=== PATIENT | female | born 1980 ===

== ENCOUNTER 2018-06-13 21:58 | Emergency (ER) | payer OTHER ==
[2018-06-13] MEDS ORDERED: Tdap Vaccine 0.5 ml Vial (10-64 yrs) IM ONE ×2 (22:19→22:31)
[2018-06-13 22:20] VITALS: BP 121/77; PULSE 65; RESP 16; TEMP 98.3; O2SAT 99
[2018-06-13] MEDS ORDERED: Lidocaine 1% Inj (20ml) INFIL ONE (22:25)
[2018-06-13] MEDS ORDERED: Bacitracin 500 Units/gm Oint Foilpak UD TOP ONE (22:28)
[2018-06-13] MEDS ORDERED: Lidocaine Hydrochloride 5 ML INJ ONE (22:31)
[2018-06-13] MEDS ORDERED: Bacitracin 500 Units/gm Oint Foilpak UD ONE (22:32)
--- NOTE | 2018-06-13 23:17 | C.PDOC ---
History Of Present Illness 38 year old female presents to the emergency department with complaints of a laceration to her left anterior forearm, caused by a knife at work. Patient denies numbness or tingling, and states that her last tetanus vaccination is unknown. Time Seen by Provider: 06/13/18 22:19 Chief Complaint (Nursing): Abnormal Skin Integrity History Per: Patient History/Exam Limitations: no limitations Onset/Duration Of Symptoms: Hrs Current Symptoms Are (Timing): Still Present Location Of Injury: Left: Forearm, Anterior: Forearm Quality Of Symptoms: Other (laceration) Past Medical History Reviewed: Historical Data, Nursing Documentation, Vital Signs Vital Signs: Last Vital Signs Temp 98.3 F 06/13/18 22:13 Pulse 65 06/13/18 22:13 Resp 16 06/13/18 22:13 BP 121/77 06/13/18 22:13 Pulse Ox 99 06/13/18 22:13 - Medical History PMH: No Chronic Diseases Surgical History: No Surg Hx Family History: States: No Known Family Hx - Social History Hx Alcohol Use: No Hx Substance Use: No - Immunization History Hx Tetanus Toxoid Vaccination: No Hx Influenza Vaccination: No Hx Pneumococcal Vaccination: No Review Of Systems Constitutional: Negative for: Fever, Chills Skin: Positive for: Other (laceration ) Neurological: Negative for: Weakness, Numbness Physical Exam - Physical Exam Appears: Non-toxic, No Acute Distress Skin: Warm, Dry Head: Atraumatic, Normacephalic Extremity: Normal ROM (all extremities), Tenderness (mild at site of laceration), No Swelling, Other (1.5cm laceration to the mid-left anterior forearm, fairly shallow, no active bleeding. from all fingers and wrist. ) Pulses: Left Radial: Normal Neurological/Psych: Oriented x3, Normal Speech, Normal Cognition ED Course And Treatment O2 Sat by Pulse Oximetry: 99 (RA) Pulse Ox Interpretation: Normal Laceration - Laceration Repair Left Forearm Wound Length (In cm): 1.5 Description Of Wound: Linear Anesthesia: Lidocaine 1% Wound Examination: Irrigated With Saline, No FB With Wound Exploration, No Tendon Injury With Wound Exploration Wound Closure: Suture (5-0ethilon) Suture Technique And Material Used: Interrupted (#3) Wound Complexity: Simple (5-0 ethilon) Medical Decision Making Medical Decision Making: Plan: Tetanus 0.5ml IM Bacitracin 1ea TOP Tylenol 650mg PO Lidocaine 1% Disposition Counseled Patient/Family Regarding: Diagnosis, Need For Followup - Disposition Disposition: HOME/ ROUTINE Disposition Time: 23:13 Condition: GOOD Additional Instructions: Mantenga la herida limpia y seca. Est atento a cualquier signo de infeccin, pily enrojecimiento. Hinchazn, peor dolor. Si es as, vuelve a ER. De lo contrario, retire la sutura en 7-10 garcia Tylenol para el dolor si es necesario Keep wound clean and dry. Watch for any signs of infection such as redness. swelling, worse pain. If so, return to ER. Otherwise, suture removal in 7-10 days Tylenol for pain if needed. Instructions: Laceration Repair With Stitches (DC) Forms: Gen Discharge Inst Japanese, [employer] (Japanese), Work Excuse Print Language: GAMBIAN - Clinical Impression Clinical Impression: Laceration of left forearm - PA / SECURITY ADMINISTRATOR / Resident Statement MD/DO has reviewed & agrees with the documentation as recorded. - Scribe Statement The provider has reviewed the documentation as recorded by the Scribe (Lloyd Barneyvi) All medical record entries made by the Scribe were at my direction and personally dictated by me. I have reviewed the chart and agree that the record accurately reflects my personal performance of the history, physical exam, medical decision making, and the department course for this patient. I have also personally directed, reviewed, and agree with the discharge instructions and disposition.
== END 2018-06-13 23:24 | disposition home or self-care (01) ==
LOC: C.ER 21:58
DX: S51.812A Laceration without foreign body of left forearm, initial encounter (principal); W26.0XXA Contact with knife, initial encounter; Y92.89 Other specified places as the place of occurrence of the external cause; Y99.0 Civilian activity done for income or pay